=== PATIENT | male | born 2005 | race Two or more races ===

== ENCOUNTER 2023-02-24 09:23 | Emergency (ER) | payer OTHER, SELFPAY ==
[2023-02-24 09:33] VITALS: BP 151/98; PULSE 69; RESP 14; TEMP 36.9; O2SAT 100; BMI 25.1
[2023-02-24 10:10] LABS: MANUAL DIFF FLAG NO
[2023-02-24 10:12] LABS: Basophils Percent Auto 0.2 % (0-2); Eosinophils Percent Auto 0.2 % (0-4); Hematocrit 47.7 % (42.0-52.0); Hemoglobin 17.3 g/dl (14.0-18.0); Imm Gran Abs Auto 0.04 X10*3/uL (0.00-0.03); Imm Gran Pct Auto 0.3 % (0.0-0.4); Lymphocytes Absolute Auto 1.2 X10*3/uL (1.2-4.9); Lymphocytes Percent Auto 9.5 % (20-40); Mean Corpuscular HGB Conc 36.3 g/dl (31.0-36.0); Mean Corpuscular Hemoglobin 30.7 pg (27.0-33.0); Mean Corpuscular Volume 84.7 fL (80.0-98.0); Mean Platelet Volume 10.1 fL (9.4-12.4); Monocytes Absolute Auto 0.4 X10*3/uL (0.1-1.2); Monocytes Percent Auto 3.2 % (2-11); Neutrophils Absolute Auto 10.7 x10*3/uL (2.0-8.3); Neutrophils Percent Auto 86.6 % (45-73); Platelet Count 270 X10*3/uL (160-400); Red Blood Count 5.63 X10*6/uL (4.60-5.80); Red Cell Distribution Width 11.7 % (11.0-16.0); White Blood Count 12.4 X10*3/uL (4.8-10.8)
[2023-02-24 10:35] LABS: Anion Gap 14 (12-20); Blood Urea Nitrogen 14 mg/dL (9-16); Calcium 9.9 mg/dL (8.4-10.2); Carbon Dioxide 24 mmol/L (22-29); Chloride 104 mmol/L (96-108); Creatinine Clr Calc Pharmacy 130.6; Estimated Glomerular Filt Rate > 60; Glucose Random 141 mg/dL (60-115); Potassium 3.3 mmol/L (3.3-5.1); Sodium 139 mmol/L (135-145)
--- NOTE | 2023-02-24 12:06 | ED_ITS ---
HPI - Nausea/Vomiting/Diarrhea General Chief complaint: Nausea/Vomiting/Diarrhea Stated complaint: Vomiting Time Seen by Provider: 02/24/23 11:56 Source: patient and family Mode of arrival: ambulatory Limitations: no limitations History of Present Illness HPI Narrative: 17 yo male dealing with recurrent bouts of upper abdominal pain and vomiting for 2.5 years he does smoke THC daily and is trying to stop. He has been told at other ERs that is is a GI bug. He was just Rx omeprazole by PCP but has not started it yet. Has 1st GI appointment in [place] in March. He started having vomiting and diarrhea/pain on Monday. He normally uses hot showers and heating pads to alleviate pain. MD elicited complaint: nausea, vomiting, diarrhea and abdominal pain Pertinent past history: cyclical vomiting Onset (ago): day(s) (4) Description of vomiting: food contents, watery and bilious Description of diarrhea: watery Associated nausea: Yes Associated abdominal pain: Yes Location of pain: epigastric Radiation: diffuse Pain consistency: constant Severity: similar to previous episodes Quality: stabbing Exacerbating factors: eating Relieving factors: none Context: marijuana use Associated symptoms: loss of appetite, malaise and nausea/vomiting Related Data Previous Rx's Medication Instructions Recorded metoclopramide HCl 10 mg tablet 10 mg PO Q6H PRN nausea and 02/24/23 (Reglan) vomiting #20 tabs Allergies Allergy/AdvReac Type Severity Reaction Status Date / Time No Known Allergies Allergy Verified 02/24/23 09:32 Review of Systems 2 Review of Systems: Constitutional : No Weight loss, No Fever, No Chills ENT/Mouth : No sore throat, No Rhinorrhea Eyes: No Swelling, No Redness Cardiovascular : No Chest Pain, No SOB, NoEdema Respiratory : No Cough, No Sputum, No Wheezing Gastrointestinal : Positive Nausea, Positive Vomiting, positive Diarrhea, positive abdominal Pain, No Hematochezia, No Melena Genitourinary : No Dysuria, No Urinary Frequency, No Hematuria, No Urgency Musculoskeletal : No joint pain, No Myalgias, No Joint Swelling Skin : No Skin Lesions, No rash Neuro : No Weakness, No Numbness, No Dizziness, No Headache Psych : No Anxiety/Panic, No Depression Heme/Lymph: No Bruising, No Lymphadenopathy Endocrine : No Polyuria, No Polydipsia All other systems reviewed and are negative. Gastrointestinal: Gastrointestinal: Reports nausea PMFSH Past Medical History Attestation statement: The following information was validated with the patient. Medical History Cyclical vomiting Social History Social History Patient Tobacco Use Status: Never used Tobacco Smoked in Last 30 Days: No Use of substances other than those prescribed or required for medical reasons: Yes Substance Use Type: Marijuana Advance Directives: No Advance Directives Information Provided: No Physical Exam 2 Vital Signs: Vital Signs: Last Vital Signs Temp 98.5 F 02/24/23 09:33 Pulse 52 02/24/23 12:33 Resp 12 02/24/23 12:33 BP 99/57 L 02/24/23 12:33 Pulse Ox 100 02/24/23 12:33 O2 Del Method Room Air 02/24/23 12:33 BMI result Body Mass Index 25.1 Appearance: Alert. Oriented X3. active dry heaving mild acute distress. Eyes: Pupils equal, round and reactive to light. ENT: Pharynx dry MM. Neck: Normal inspection. Neck supple. CVS: Normal heart rate and rhythm. Pulses normal. Respiratory: No respiratory distress. Breath sounds normal. Abdomen: Soft and mild epigastric pain no rebound Skin: Skin warm and dry. pale skin color. Normal skin turgor. Extremities: No lower extremity edema. No calf ttp Neuro: Oriented X 3. No motor deficit. No sensory deficit. Course Course Course Narrative: tolerating PO and asking to go home Medications Administered Discontinued Medications Generic Name Dose Route Start Last Admin Trade Name Jeromeq PRN Reason Stop Dose Admin Droperidol 1.25 mg 02/24/23 12:00 02/24/23 12:14 Droperidol 5 Mg/2 Ml Vial IVPUSH 02/24/23 12:01 1.25 mg ONCE ONE Administration Sodium Chloride 1,000 mls @ 999 mls/hr 02/24/23 12:00 02/24/23 12:12 Ns IV 02/24/23 13:00 999 mls/hr .Q1H1M FELIPE Administration Medical Decision Making Medical Decision Making MDM Narrative: 17 yo male with PMH of cyclical vomiting here with c/o upper abdominal pain and n/v hx of same in past over 2 years about 1 or 2 bouts every month. His partner and him have set up PPI Rx and GI appointment. He has benign abdominal exam he is not toxic appearing. He uses heat to treat his symptoms I suspect this is related to THC abuse. At this time labs, IVF and supportive medications. He even has therapy set up for anxiety treatment Differential Diagnosis Differential Diagnoses: The differential diagnosis associated with the presentation includes dehydration, cyclical vomiting, THC induced emesis Admission/Observation Consideration of admission/observation: Escalation of care including admission/observation considered tolerating PO feels much better stable for DC Lab Data MDM Lab Attestation statement: I reviewed the patient's lab results. 02/24/23 09:56 02/24/23 09:56 Labs: Lab Results 02/24/23 Range/Units 09:56 WBC 12.4 H (4.8-10.8) X10*3/uL RBC 5.63 (4.60-5.80) X10*6/uL Hgb 17.3 (14.0-18.0) g/dl Hct 47.7 (42.0-52.0) % MCV 84.7 (80.0-98.0) fL MCH 30.7 (27.0-33.0) pg MCHC 36.3 H (31.0-36.0) g/dl RDW 11.7 (11.0-16.0) % Plt Count 270 (160-400) X10*3/uL MPV 10.1 (9.4-12.4) fL Immature Gran % (Auto) 0.3 (0.0-0.4) % Neut % (Auto) 86.6 H (45-73) % Lymph % (Auto) 9.5 L (20-40) % Garland % (Auto) 3.2 (2-11) % Eos % (Auto) 0.2 (0-4) % Baso % (Auto) 0.2 (0-2) % Lymph # (Auto) 1.2 (1.2-4.9) X10*3/uL Garland # (Auto) 0.4 (0.1-1.2) X10*3/uL Eos # (Auto) 0.0 (0.0-0.4) X10*3/uL Baso # (Auto) 0.0 (0.0-0.2) X10*3/uL Abs Immat Gran (auto) 0.04 H (0.00-0.03) X10*3/uL Absolute Neuts (auto) 10.7 H (2.0-8.3) x10*3/uL Absolute Nucleated RBC 0.000 (0.0-0.012) X10*3/uL Nucleated RBC % (auto) 0.0 (0.0-0.2) /100WBC Sodium 139 (135-145) mmol/L Potassium 3.3 (3.3-5.1) mmol/L Chloride 104 (96-108) mmol/L Carbon Dioxide 24 (22-29) mmol/L Anion Gap 14 (12-20) BUN 14 (9-16) mg/dL Creatinine 0.85 (0.5-1.4) mg/dL Estim Creat Clear Calc 130.6 Estimated GFR > 60 Random Glucose 141 H (60-115) mg/dL Calcium 9.9 (8.4-10.2) mg/dL Total Bilirubin 1.2 H (0.0-1.0) mg/dL Direct Bilirubin 0.4 (0.0-0.5) mg/dL AST 43 H (5-37) U/L ALT 69 H (0-40) U/L Alkaline Phosphatase 70 (39-117) U/L Total Protein 7.5 (6.5-8.0) g/dL Albumin 4.9 (3.5-5.0) g/dL Lipase 10 (8-78) U/L Independent Historian Clinical information obtained from an independent historian. History obtained from or confirmed by: Spouse Tests considered The following testing was considered but not selected: CT scan but feels better stable for DC Prescription Management I considered prescription management with: Other Discharge Plan Discharge Clinical Impression: Cyclical vomiting Patient Disposition: Home, Self-Care Instructions: Cyclic Vomiting Syndrome (ED) Additional Instructions: stay hydrated, take your omeprazole. you have a very mild bump in your liver tests - minimal please have your doctor recheck next week avoid alcohol. return for fevers, vomiting, pain, or any other concerns. eat a bland diet and advance over 48 hours Prescriptions: New metoclopramide HCl [Reglan] 10 mg tablet 10 mg PO Q6H PRN (Reason: nausea and vomiting) Qty: 20 0RF Interventions: ED Discharge Assessment Last Done: 02/24/23 14:14 Discharge Date/Time: 02/24/23 14:15
[2023-02-24] MEDS: 0.9 % Sodium Chloride 1,000 ML 999 ML IV (12:12)
[2023-02-24] MEDS: droPERidol 5 MG/2 ML VIAL 1.25 MG IVPUSH (12:14)
[2023-02-24 12:23] LABS: Alanine Aminotransferase 69 U/L (0-40); Albumin Level 4.9 g/dL (3.5-5.0); Alkaline Phosphatase 70 U/L (39-117); Aspartate Amino Transferase 43 U/L (5-37); Bilirubin Direct 0.4 mg/dL (0.0-0.5); Bilirubin Total 1.2 mg/dL (0.0-1.0); Lipase 10 U/L (8-78); Total Protein 7.5 g/dL (6.5-8.0)
[2023-02-24 12:33] VITALS: BP 99/57; PULSE 52; RESP 12; O2SAT 100
== END 2023-02-24 14:15 | disposition home or self-care (01) ==
PROVIDERS: Emergency Provider Emergency Medicine; PCP Physician Assistant Medical
DX: R11.15 Cyclical vomiting syndrome unrelated to migraine (principal); R11.2 Nausea with vomiting, unspecified; R10.10 Upper abdominal pain, unspecified; R53.81 Other malaise; F12.90 Cannabis use, unspecified, uncomplicated; Z79.899 Other long term (current) drug therapy
CPT/HCPCS: 36415; 80048; 80076; 83690; 85025; 96374; 99284; J1790